=== PATIENT | female | born 1960 | race Two or more races ===

== ENCOUNTER 2020-07-25 12:42 | Emergency (ER) | payer BC, OTHER ==
[~2020-07-25] VITALS: Ht 162.6 cm; Wt 82.6 kg
[~2020-07-25 12:42] MED LIST: CIPR-173 PO; METR500T PO
[2020-07-25 12:49] VITALS: BP 124/64
[2020-07-25] MEDS ORDERED: ACETAMINOPHEN 500 MG TAB PO ONE (15:00)
== END 2020-07-25 15:22 | disposition home or self-care (01) ==
LOC: ER 12:42
DX: U07.1 COVID-19 (principal); J20.8 Acute bronchitis due to other specified organisms; E78.5 Hyperlipidemia, unspecified; Z79.899 Other long term (current) drug therapy
CPT/HCPCS: 36415; 71045; 87426

== ENCOUNTER 2021-04-03 17:30 | Emergency (ER) | payer OTHER ==
[~2021-04-03] VITALS: Ht 162.6 cm; Wt 87.1 kg
[2021-04-03 23:17] VITALS: BP 132/82
== END 2021-04-03 23:25 | disposition home or self-care (01) ==
LOC: ER 17:34
DX: M79.89 Other specified soft tissue disorders (principal); E11.9 Type 2 diabetes mellitus without complications; E78.5 Hyperlipidemia, unspecified; Z90.49 Acquired absence of other specified parts of digestive tract; Z98.51 Tubal ligation status
CPT/HCPCS: 93971